=== PATIENT | female | born 1995 | race Caucasian/White ===

== ENCOUNTER 2020-09-23 06:51 | Outpatient (NON) | payer OTHER, SELFPAY ==
[2020-09-24 00:16] LABS: SARS-CoV-2 RNA PCR Negative
== END 2020-09-23 06:52 ==
LOC: ANHCOVIDDT 07:08
PROVIDERS: Visit Provider Family Medicine
DX: R68.89 Other general symptoms and signs (principal); Z20.822 Contact with and (suspected) exposure to COVID-19
CPT/HCPCS: C9803; U0003; U0005

== ENCOUNTER 2023-06-20 10:56 | Outpatient (CLI) | payer OTHER, SELFPAY ==
[2023-06-20 12:54] LABS: Basophils Percent Auto 0.5 % (0.2-1.2); Eosinophils Absolute Auto 0.1 K/mm3 (0-0.3); Hematocrit 45.1 % (37.0-47.0); Hemoglobin 15.5 g/dL (12.0-15.0); Immature Granulocyte Absolute 0.02 K/mm3 (0.00-0.031); Immature Granulocyte Percent A 0.3 % (0-0.5); Lymphocytes Absolute Auto 1.66 K/mm3 (0.9-3.2); Lymphocytes Percent Auto 28.3 % (18.3-44.2); Mean Corpuscular HGB Conc 34.4 g/dl (32-36); Mean Corpuscular Hemoglobin 31.5 pg (26-34); Mean Corpuscular Volume 91.7 fl (80-100); Monocytes Absolute Auto 0.4 K/mm3 (0.1-0.6); Neutrophils Absolute Auto 3.7 K/mm3 (1.3-6.7); Neutrophils Percent Auto 62.9 % (45.5-73.1); Platelet Count Result 249 k/mm3 (150-375); Red Blood Count 4.92 M/mm3 (4.2-5.4); Red Cell Distribution Width 11.3 % (11.5-14.5); White Blood Count 5.9 K/mm3 (4.5-10.0)
[2023-06-20 13:01] LABS: Alanine Aminotransferase 17 U/L (6-35); Albumin Level 5.1 g/dL (3.5-5.1); Alkaline Phosphatase 79 U/L (38-126); Anion Gap 8 mmol/L (8-16); Aspartate Amino Transferase 37 U/L (14-36); Blood Urea Nitrogen 12 mg/dL (7-17); Calcium 9.4 mg/dL (8.4-10.2); Carbon Dioxide 31 mmol/L (22-30); Chloride 99 mmol/L (98-107); Cholesterol 163 mg/dL (0-200); Estimated Glomerular Filt Rate > 60; Glucose 86 mg/dL (65-110); HDL Direct 70 mg/dL; Potassium 3.9 mmol/L (3.4-5.0); Sodium 138 mmol/L (137-145); Triglycerides 41 mg/dL (<150)
[2023-06-20 13:12] LABS: LDL Cholesterol Direct 72 mg/dL
[2023-06-20 13:20] LABS: Free T4 Free Thyroxine 1.04 ng/mL (0.78-2.19)
[2023-06-20 13:32] LABS: Total Triiodothyronine (T3) 1.36 NG/ML (0.97-1.69)
[2023-06-22 19:36] LABS: Thyroid Peroxidase Antibodies 386 IU/mL (<9)
== END 2023-06-20 10:57 | disposition home or self-care (01) ==
LOC: ANHLAB 11:01 → ANHWCLAB 11:13
PROVIDERS: PCP Family Medicine; Visit Provider Nurse Practitioner Adult Health
DX: Z13.29 Encounter for screening for other suspected endocrine disorder (principal); E03.9 Hypothyroidism, unspecified; R53.1 Weakness; R53.83 Other fatigue
CPT/HCPCS: 36415; 80053; 80061; 84439; 84443; 84480; 85025; 86376; 86800

== ENCOUNTER → 2023-07-11 08:07 | Outpatient (CLI) | payer OTHER, SELFPAY ==
--- NOTE | ~2023-07-11 | US_ITS ---
EXAMINATION: US thyroid DATE: 07/11/2023 08:27 INDICATION: Hypothyroidism. TECHNIQUE: Multiple ultrasound images of the thyroid were obtained. COMPARISON: None. FINDINGS: The right thyroid lobe measures 4.4 x 1.0 x 12.5 cm. The left thyroid lobe measures 4.1 x 1.1 x 1.4 cm. The thyroid demonstrates coarsened echotexture and increased vascularity. No discrete nodule. IMPRESSION: 1. Heterogeneous, hypervascular thyroid, consistent with chronic lymphocytic (Olu) thyroiditis. Reviewed, dictated and finalized at location E. IMPRESSION: 1. Heterogeneous, hypervascular thyroid, consistent with chronic lymphocytic (H ashimoto) thyroiditis.
== END ==
PROVIDERS: PCP Nurse Practitioner Adult Health; Visit Provider Nurse Practitioner Adult Health
DX: E03.9 Hypothyroidism, unspecified (principal)
CPT/HCPCS: 76536